=== PATIENT | female | born 1950 ===

== ENCOUNTER 2019-04-22 06:20 | Day surgery (SDC) | payer OTHER ==
[~2019-04-22 06:20] MED LIST: ACID REDUCER20 M1 PO; SIMVASTATIN5 MG PO; SYNTHROID75 MCG PO; VITAMIN D35000 UNI1 PO
[2019-04-22] MEDS ORDERED: PERCOCET 5-3251 EACH PO (09:07)
== END 2019-04-22 12:10 | disposition home or self-care (01) ==
LOC: CIR.AMB 06:20 → ADM 09:15 → CIR.AMB 09:15
DX: C15.8 Malignant neoplasm of overlapping sites of esophagus (principal)
CPT/HCPCS: 36561; C1751